=== PATIENT | female | born 1950 | race African-American/Black ===

== ENCOUNTER 2017-08-14 19:42 | Emergency (ER) | payer MEDICARE, MEDICAID ==
[~2017-08-14] VITALS: Ht 167.6 cm; Wt 73.0 kg
[~2017-08-14 19:42] MED LIST: ASPI-1159 PO; GABA-531 PO; SIMV20TA6 PO
[2017-08-14] MEDS ORDERED: ONDANSETRON 4MG ODT PO ONE (21:30)
[2017-08-15 01:22] VITALS: BP 131/53
== END 2017-08-15 01:24 | disposition home or self-care (01) ==
LOC: ER 19:42
DX: T59.9 Toxic effect of unspecified gases, fumes and vapors (principal); H10.213 Acute toxic conjunctivitis, bilateral; R07.9 Chest pain, unspecified; E78.00 Pure hypercholesterolemia, unspecified; Z88.8 Allergy status to other drugs, medicaments and biological substances; Y92.89 Other specified places as the place of occurrence of the external cause
CPT/HCPCS: 82962; 93005; 99283; Q0162

== ENCOUNTER 2019-03-18 06:46 | Inpatient (IN) | payer MEDICARE, MEDICAID ==
[~2019-03-18] VITALS: Ht 167.6 cm; Wt 68.9 kg
[~2019-03-18 06:46] MED LIST changes: +ACET-2708 PO; +ALBU18HF2 IH; -ASPI-1159 PO; +ASPI-1393 PO; +ATOR20TA65 PO; +OMEP20CA5 PO; -SIMV20TA6 PO
[2019-03-18] MEDS ORDERED: BUPIVACAINE/EPINEPH/PF 0.25%/0.0005 10ML ONE (07:10)
[2019-03-18] MEDS ORDERED: MORPHINE SULFATE/PF 1MG/ML 10ML AMP ONE (07:10)
[2019-03-18] MEDS ORDERED: SODIUM CHLORIDE 0.9% 1,000 ML IV SCH (07:30)
[2019-03-18] MEDS ORDERED: EPINEPHRINE 1:1000 1 MG/ML AMP ONE (07:53)
[2019-03-18] MEDS ORDERED: FENTANYL CITRATE/PF 50MCG/ML 2ML VIAL ONE (08:02)
[2019-03-18] MEDS ORDERED: MIDAZOLAM HCL 2 MG/2 ML VIAL ONE ×2 (08:02→08:38)
[2019-03-18] MEDS ORDERED: PROPOFOL 200MG/20ML VIAL IV ONE (08:03)
[2019-03-18] MEDS ORDERED: ROCURONIUM BROMIDE 10MG/ML VIAL 5ML IV ONE (08:03)
[2019-03-18] MEDS ORDERED: SUCCINYLCHOLINE CHLORIDE 200MG/10ML IV ONE (08:03)
[2019-03-18] MEDS ORDERED: SODIUM CHLORIDE 0.9% 10ML VIAL ONE (08:03)
[2019-03-18] MEDS ORDERED: PHENYLEPHRINE HCL 10 MG/ML 1ML (IV VIAL) IV ONE (08:13)
[2019-03-18] MEDS ORDERED: CLINDAMYCIN 900 MG PREMIX 50 ML IV ONE (08:14)
[2019-03-18] MEDS ORDERED: LEVOFLOXACIN 500MG PREMIX 0 ML IV ONE (08:15)
[2019-03-18] MEDS ORDERED: GLYCOPYRROLATE 0.2 MG/ML 2ML VIAL ONE (08:28)
[2019-03-18] MEDS ORDERED: ONDANSETRON HCL 4MG/2ML INJ ONE (09:07)
[2019-03-18] MEDS ORDERED: METOCLOPRAMIDE HCL 10MG/2ML VIAL ONE (09:07)
[2019-03-18] MEDS ORDERED: DEXAMETHASONE 4MG/ML 1ML VIAL ONE (09:21)
[2019-03-18] MEDS ORDERED: TERBUTALINE SULFATE 1MG/ML VIAL ONE (09:21)
[2019-03-18] MEDS ORDERED: BUPIVACAINE HCL/PF 0.5% (5MG/ML) 10ML ONE (09:32)
[2019-03-18] MEDS ORDERED: EPHEDRINE SULFATE 50MG/ML VIAL ONE (11:07)
[2019-03-18] MEDS ORDERED: HYDRALAZINE 20MG/ML VIAL ONE (12:34)
[2019-03-18] MEDS ORDERED: ONDANSETRON HCL 4MG/2ML INJ IV PRN (12:45)
[2019-03-18] MEDS ORDERED: ZOLPIDEM TARTRATE 5MG TABLET PO PRN (12:45)
[2019-03-18] MEDS ORDERED: ACETAMINOPHEN 325MG TABLET PO PRN (12:45)
[2019-03-18] MEDS ORDERED: HYDROCODONE/ACETAMINOPHEN 5/325MG TABLET PO PRN ×2 (12:45)
[2019-03-18] MEDS ORDERED: MAGNESIUM HYDROXIDE 400MG/5ML 30ML UDC PO PRN (12:45)
[2019-03-18] MEDS ORDERED: HYDROMORPHONE HCL/PF 2MG/ML CPJ IV PRN (13:30)
[2019-03-18] MEDS ORDERED: HYDRALAZINE 20MG/ML VIAL IV SCH (14:00)
[2019-03-18] MEDS ORDERED: DIPHENHYDRAMINE INJ IV PRN (14:15)
[2019-03-18] MEDS ORDERED: MORPHINE PCA 50MG/50ML IV PRN (14:15)
[2019-03-18] MEDS ORDERED: ONDANSETRON INJ IV PRN (14:15)
[2019-03-18] MEDS ORDERED: NALOXONE INJ IV PRN (14:15)
[2019-03-18 17:45] VITALS: BP 141/81
[2019-03-18] MEDS ORDERED: AMLODIPINE 5MG TABLET PO SCH (18:00)
[2019-03-18] MEDS ORDERED: DEXTROSE 50% WATER 50ML SYRINGE IV PRN (18:00)
[2019-03-18] MEDS ORDERED: CLONIDINE 0.1MG TABLET PO PRN (18:00)
[2019-03-18] MEDS ORDERED: LABETALOL 5MG/ML SYR 20 MG/4 ML SYRINGE IV PRN (18:15)
[2019-03-18] MEDS ORDERED: HYDRALAZINE 10 MG in SODIUM CHLORIDE 0.9% 49.5 ML IV PRN (18:45)
[2019-03-18 20:00] VITALS: BP 128/69
[2019-03-18] MEDS ORDERED: ATORVASTATIN CALCIUM 20MG TABLET PO SCH (21:00)
[2019-03-18] MEDS: INSULIN LISPRO 100 UNITS/ML SUBCUT SCH (21:00)
[2019-03-18] MEDS: BLOOD SUGAR DIAGNOSTIC STRIP TEST SCH (21:00)
[2019-03-18] MEDS: CLINDAMYCIN 900 MG in DEXTROSE 5% WATER 50 ML IV SCH (22:34)
[2019-03-19] VITALS: BP 149/99
[2019-03-19] MEDS: DOCUSATE SODIUM 100MG CAPSULE PO SCH ×2 (01:43→08:50)
[2019-03-19 04:00] VITALS: BP 115/62
[2019-03-19] MEDS: CLINDAMYCIN 900 MG in DEXTROSE 5% WATER 50 ML IV SCH (05:10)
[2019-03-19] MEDS: BLOOD SUGAR DIAGNOSTIC STRIP TEST SCH ×2 (07:20→12:20)
[2019-03-19] MEDS: INSULIN LISPRO 100 UNITS/ML SUBCUT SCH ×2 (07:50→12:50)
[2019-03-19 08:00] VITALS: BP 105/53
[2019-03-19] MEDS: GABAPENTIN 300MG CAPSULE PO SCH ×2 (08:48→13:00)
[2019-03-19] MEDS ORDERED: ASPIRIN 81MG TABLET PO SCH (09:00)
[2019-03-19] MEDS ORDERED: OMEPRAZOLE 20MG CAPSULE EXTENDED RELEASE PO SCH (09:00)
[2019-03-19 10:19] LABS: BASOPHILS % 0.1 % (0.0-2.0); HEMATOCRIT. 37.6 % (36.0-48.0); HEMOGLOBIN. 12.7 g/dL (12.0-16.0); LYMPHOCYTES % 18.5 % (20.0-50.0); MEAN CORPUSCULAR HEMOGLOBIN 28.8 pg (28.0-32.0); MEAN PLATELET VOLUME 8.5 fl (7.4-10.4); MONOCYTES % 8.7 % (2.0-8.0); NEUTROPHILS % 72.7 % (40.0-76.0); PLATELET 188 x1000/uL (130-400); RED BLOOD CELL COUNT 4.42 mill/uL (4.2-5.4); RED CELL DISTRIBUTION WIDTH 14.7 % (11.6-14.6)
[2019-03-19 10:31] LABS: CHLORIDE 108 mEq/L (98-107)
[2019-03-19 10:39] LABS: LDL CHOLESTEROL 61 mg/dL (5-100)
[2019-03-19 10:41] LABS: HDL CHOLESTEROL 54 mg/dL (40-59)
== END 2019-03-19 13:37 | disposition home or self-care (01) | DRG 512 ==
LOC: OR 06:46 → 6EST 17:52
PROVIDERS: ADMIT Orthopaedic Surgery; ATTEND Orthopaedic Surgery
PROC: 0LQ24ZZ Repair Left Shoulder Tendon, Percutaneous Endoscopic Approach (ICD-10-PCS; principal; 2019-03-18)
DX: M75.122 Complete rotator cuff tear or rupture of left shoulder, not specified as traumatic (principal); E11.9 Type 2 diabetes mellitus without complications; E78.5 Hyperlipidemia, unspecified; G89.29 Other chronic pain; I10 Essential (primary) hypertension; J45.909 Unspecified asthma, uncomplicated; K21.9 Gastro-esophageal reflux disease without esophagitis; M19.012 Primary osteoarthritis, left shoulder; M65.812 Other synovitis and tenosynovitis, left shoulder; M75.42 Impingement syndrome of left shoulder; M75.50 Bursitis of unspecified shoulder; F32.9 Major depressive disorder, single episode, unspecified; F41.9 Anxiety disorder, unspecified; I95.9 Hypotension, unspecified; M94.212 Chondromalacia, left shoulder; Z88.0 Allergy status to penicillin; Z90.710 Acquired absence of both cervix and uterus; Z98.51 Tubal ligation status
CPT/HCPCS: 36415; 80048; 80061; 82962; 83036; 88304; 88311; 94002; 97166; 97535; A4565; C1713; J0171; J0330; J0360; J1100; J1956; J2250; J2270; J2274; J2370; J2405; J2704; J2765; J3010; J3105; J3490; J7040; J7060

== ENCOUNTER → 2021-07-07 | Outpatient (CLI) | payer MEDICARE, MEDICAID ==
[~2021-07-07] MED LIST changes: -ASPI-1393 PO; +ASPI-1497 PO; -GABA-531 PO; +GABA-532 PO; +OMEP20CA14 PO; -OMEP20CA5 PO
== END | disposition home or self-care (01) ==
LOC: RAD 13:28
DX: M19.012 Primary osteoarthritis, left shoulder (principal); M85.812 Other specified disorders of bone density and structure, left shoulder; M19.042 Primary osteoarthritis, left hand; M18.9 Osteoarthritis of first carpometacarpal joint, unspecified; M25.742 Osteophyte, left hand
CPT/HCPCS: 73030; 73110; 73130